=== PATIENT | female | born 1955 | race Asian ===

== ENCOUNTER 2023-05-18 12:27 | Emergency (ER) | payer BC ==
[~2023-05-18] VITALS: Ht 165.1 cm; Wt 68.0 kg
[~2023-05-18 12:27] MED LIST: ASPI-1155 PO; CEL20 PO; METO25TA6 PO; RESEYE OP; SIMV-343 PO; ZOLP5TAB2 PO
[2023-05-18 12:30] VITALS: BP_SYST 136; BP_SYST 183; PULSE 88; RESP 18; TEMP 99.7; O2SAT 98
[2023-05-18 13:22] LABS: BASOPHILS % (AUTO) 0.4 % (0.0-2.0); EOSINOPHILS # (AUTO) 0.1 K/uL (0.0-0.4); EOSINOPHILS % (AUTO) 0.5 % (0.0-4.0); HEMATOCRIT 48.5 % (36-48); HEMOGLOBIN 16.4 g/dL (12.0-16.0); LYMPHOCYTES # (AUTO) 2.5 K/uL (1.0-5.5); LYMPHOCYTES % (AUTO) 21.7 % (20.5-51.5); MEAN CORPUSCULAR HEMOGLOBIN 31 pg (27-31); MEAN CORPUSCULAR HGB CONC 34 % (32-36); MEAN CORPUSCULAR VOLUME 93 fL (79.0-98.0); MONOCYTES # (AUTO) 0.6 K/uL (0.0-1.0); MONOCYTES % (AUTO) 4.8 % (1.7-9.3); NEUTROPHILS # (AUTO) 8.4 K/uL (1.8-7.7); NEUTROPHILS % (AUTO) 72.6 % (40.0-70.0); PLATELET COUNT (AUTO) 429 K/uL (130-430); RED BLOOD CELL COUNT(AUTO) 5.22 MIL/uL (4.2-6.2); RED CELL DISTRIBUTION WIDTH 13.9 % (9.0-15.0); WHITE BLOOD COUNT (AUTO) 11.5 K/uL (4.8-10.8)
[2023-05-18 13:34] LABS: BILIRUBIN,URINE NEGATIVE (NEGATIVE); BLOOD, URINE 3+ (NEGATIVE); CLARITY/URINE CLEAR (CLEAR); COLOR,URINE YELLOW (YELLOW); GLUCOSE,URINE NEGATIVE (NEGATIVE); KETONES,URINE NEGATIVE (NEGATIVE); LEUKOCYTE ESTERASE ,URINE NEGATIVE (NEGATIVE); NITRITE, URINE NEGATIVE (NEGATIVE); PH,URINE 5.5 (5.0-8.0); PROTEIN URINE 2+ (NEGATIVE); UROBILINOGEN,URINE 0.2 (0.2-1.0)
[2023-05-18 13:44] LABS: CALCIUM 9.6 mg/dL (8.4-11.0); CREATININE 0.93 mg/dL (0.55-1.30)
[2023-05-18 13:48] LABS: ALBUMIN 4.3 g/dL (3.4-4.8); BILIRUBIN,DIRECT 0.1 mg/dL (0.0-0.3); TOTAL BILIRUBIN 0.7 mg/dL (0.0-1.0); TOTAL PROTEIN, SERUM 8.3 g/dL (6.4-8.3)
[2023-05-18 13:49] LABS: BACTERIA,URINE FEW /HPF (None Seen); MUCUS,URINE 1+ /LPF (None Seen); WBC,URINE 0-3 /HPF (0-3); YEAST,URINE Rare /HPF (None Seen)
[2023-05-18] MEDS: ACETAMINOPHEN 500 MG TABLET PO ONE (16:33)
[2023-05-18 17:42] VITALS: BP_SYST 149; PULSE 99; RESP 18; TEMP 98; O2SAT 97
== END 2023-05-18 16:45 | disposition home or self-care (01) ==
LOC: SED 12:27
DX: G45.9 Transient cerebral ischemic attack, unspecified (principal); R41.82 Altered mental status, unspecified; I10 Essential (primary) hypertension; K21.9 Gastro-esophageal reflux disease without esophagitis; Z85.3 Personal history of malignant neoplasm of breast; Z79.899 Other long term (current) drug therapy
CPT/HCPCS: 36415; 70450-TC; 70551; 80048; 80076; 81000; 81001; 81015; 85025; 87086; 99284

== ENCOUNTER 2023-12-21 15:34 | Emergency (ER) | payer OTHER, BC ==
[~2023-12-21] VITALS: Ht 165.1 cm; Wt 74.8 kg
[2023-12-21 15:34] VITALS: BP_SYST 147; PULSE 90; RESP 19; TEMP 97.8; O2SAT 96
[2023-12-21 18:51] VITALS: BP_SYST 155; PULSE 86; RESP 17; TEMP 97.9; O2SAT 97
== END 2023-12-21 18:51 | disposition home or self-care (01) ==
LOC: SED 15:34
DX: S43.491A Other sprain of right shoulder joint, initial encounter (principal); S20.219A Contusion of unspecified front wall of thorax, initial encounter; K21.9 Gastro-esophageal reflux disease without esophagitis; I10 Essential (primary) hypertension; E78.00 Pure hypercholesterolemia, unspecified; Z85.3 Personal history of malignant neoplasm of breast; Z79.621 Long term (current) use of calcineurin inhibitor; Z79.82 Long term (current) use of aspirin; Z79.899 Other long term (current) drug therapy; V89.2XXA Person injured in unspecified motor-vehicle accident, traffic, initial encounter; Y93.89 Activity, other specified; Y92.89 Other specified places as the place of occurrence of the external cause; Y99.8 Other external cause status
CPT/HCPCS: 71045; 73030; 99284